=== PATIENT | female | born 1945 | race Caucasian/White ===

== ENCOUNTER 2017-05-03 14:13 | Emergency (ER) | payer OTHER ==
[~2017-05-03] VITALS: Ht 160 cm; Wt 45.4 kg
[2017-05-03 14:23] VITALS: BP 164/78
[2017-05-03 15:54] LABS: Urine Bilirubin Negative (Negative); Urine Blood TRACE /uL (Negative); Urine Color Yellow (Yellow); Urine Glucose Normal (Normal); Urine Ketone Negative (Negative); Urine RBC <1 /hpf (0 - 4); Urine Squamous Epithelial Cell FEW /hpf (<5); Urine Urobilinogen Normal (Negative); Urine pH 5.5 (5.0-8.0)
[2017-05-03 15:57] LABS: Urine Nitrite POSITIVE (Negative)
[2017-05-03] MEDS ORDERED: ACETAMINOPHEN 325 MG TAB PO ONE ×2 (16:29→16:45)
== END 2017-05-03 17:35 | disposition home or self-care (01) ==
LOC: EDBD 14:13 → ER 14:30
DX: M79.604 Pain in right leg (principal); N39.0 Urinary tract infection, site not specified; F17.210 Nicotine dependence, cigarettes, uncomplicated; Z90.710 Acquired absence of both cervix and uterus
CPT/HCPCS: 81001; 93005; 93971

== ENCOUNTER 2018-11-15 16:08 | Emergency (ER) | payer OTHER ==
[~2018-11-15] VITALS: Ht 162.6 cm; Wt 49.9 kg
[2018-11-15 16:13] VITALS: BP 108/72
[2018-11-15] MEDS ORDERED: IBUPROFEN 800 MG TAB PO ONE (22:15)
== END 2018-11-15 23:18 | disposition home or self-care (01) ==
LOC: ER 16:08 → EDBD 16:08 → ER 23:18
DX: S92.351A Displaced fracture of fifth metatarsal bone, right foot, initial encounter for closed fracture (principal); M85.871 Other specified disorders of bone density and structure, right ankle and foot; F17.210 Nicotine dependence, cigarettes, uncomplicated; Z90.710 Acquired absence of both cervix and uterus; X50.1XXA Overexertion from prolonged static or awkward postures, initial encounter; Y93.89 Activity, other specified; Y99.8 Other external cause status; Y92.89 Other specified places as the place of occurrence of the external cause
CPT/HCPCS: 29515; 73630